=== PATIENT | male | born 1965 | race African-American/Black ===

== ENCOUNTER 2018-06-24 14:24 | Emergency (ER) | payer OTHER ==
--- NOTE | 2018-06-24 14:54 | PDOC ---
History of Present Illness - General Chief Complaint: Alcohol intoxication Stated Complaint: DETOX Time Seen by Provider: 06/24/18 14:52 History Source: Patient Exam Limitations: Intoxication - History of Present Illness Initial Comments: Pt, with PMH of asthma, alcohol and marijuana use, presents with alcohol intoxication while attempting to check into the [facility] rehab center ([facility]). The pt called EMS to bring him to the detox center. The pt states he drinks 1 quart of vodka per day, and 50 oz of malt liquor per day. 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 The pt also has frequent falls with loss of balance, including a fall yesterday in which he fell onto his R forearm, and "maybe hitting his head". The pt uses a cane to ambulate. He also complains of chronic dry cough and took his albuterol MDI 1x today. He denies any recent LOC, tremors or seizures, fevers/chills, nausea/vomiting, chest pain, SOB, abdominal pain, urinary symptoms, diarrhea/constipation, or leg swelling. 06/24/18 19:27 Past History - Travel Traveled outside of the country in the last 30 days: No Close contact w/someone who was outside of country & ill: No - Past Medical History Allergies/Adverse Reactions: Allergies Allergy/AdvReac Type Severity Reaction Status Date / Time Penicillins Allergy Verified 06/24/18 14:41 Home Medications: Ambulatory Orders Albuterol Sulfate Inhaler - [Ventolin Hfa Inhaler -] 1 - 2 inh PO Q4H 06/24/18 traMADol HCL [Ultram -] 25 mg PO HS 06/24/18 Asthma: Yes COPD: No DVT: No Seizures: Yes Other medical history: substance abuse - Surgical History Abdominal Surgery: No Gastric Stapling: No Lung Surgery: No Neurologic Surgery: No - Immunization History Immunization Up to Date: No - Suicide/Smoking/Psychosocial Hx Smoking History: Current every day smoker Have you smoked in the past 12 months: Yes Number of Cigarettes Smoked Daily: 3 Information on smoking cessation initiated: No Hx Alcohol Use: Yes Drug/Substance Use Hx: No Substance Use Type: Alcohol Review of Systems - Review of Systems Able to Perform ROS?: Yes Is the patient limited Maltese proficient: No Constitutional: Yes: Weight Stable. No: Chills, Diaphoresis, Fever, Loss of Appetite, Weakness HEENTM: No: Blurred Vision, Recent change in vision, Hearing Loss, Throat Swelling, Difficulty Swallowing Respiratory: Yes: Cough (dry cough). No: Orthopnea, Shortness of Breath, Productive cough Cardiac (ROS): No: Chest Pain, Edema, Irregular Heart Rate, Lightheadedness, Palpitations, Syncope, Chest Tightness ABD/GI: No: Abdominal Distended, Constipated, Diarrhea, Nausea, Poor Appetite, Poor Fluid Intake, Vomiting : No: Burning, Dysuria, Frequency, Hematuria, Pain, Urgency Musculoskeletal: Yes: Back Pain (chronic low back pain, takes tramadol). No: Joint Pain, Joint Swelling Integumentary: No: Bruising, Erythema, Pruritus, Rash Neurological: Yes: Seizure, Unsteady Gait (frequent falls). No: Headache, Numbness, Paresthesia, Tingling, Tremors, Weakness, Ataxia, Dizziness Psychiatric: No: Sleep Pattern Change, Change in Appetite Endocrine: No: Increased Urine, Change in Weight Hematologic/Lymphatic: No: Anemia, Blood Clots, Easy Bleeding All Other Systems: Reviewed and Negative *Physical Exam - Vital Signs Last Vital Signs Temp Pulse Resp BP Pulse Ox 99.0 F 90 16 126/89 95 06/24/18 14:36 06/24/18 14:36 06/24/18 14:36 06/24/18 14:36 06/24/18 14:36 - Physical Exam General Appearance: Yes: Nourished, Appropriately Dressed, Alcohol on Breath, Intoxicated. No: Apparent Distress HEENT: positive: EOMI, DEVI, Normal Voice, Symmetrical, Hearing Grossly Normal, Thrush (yellow film over tongue, no tonsillar exudate). negative: Normal ENT Inspection, Pharynx Normal, Pale Conjunctivae, Scleral Icterus (R), Scleral Icterus (L), Pharyngeal Erythema, Tonsillar Exudate (yellow film on tongue), Tonsillar Erythema, Nasal Congestion, Rhinorrhea Neck: positive: Trachea midline, Normal Thyroid, Supple. negative: Tender, Rigid, Lymphadenopathy (R), Lymphadenopathy (L) Respiratory/Chest: positive: Lungs Clear. negative: Chest Tender, Normal Breath Sounds (decreased breath sounds, no wheezing.), Respiratory Distress, Accessory Muscle Use, Labored Respiration, Crackles, Wheezing Cardiovascular: positive: Regular Rhythm, Regular Rate, S1, S2. negative: Edema , JVD, Murmur Vascular Pulses: Dorsalis-Pedis (R): 4+, Doralis-Pedis (L): 4+ Gastrointestinal/Abdominal: positive: Normal Bowel Sounds, Flat, Soft. negative : Tender, Organomegaly, Pulsatile Mass, Guarding, Rebound, Tenderness Lymphatic: negative: Adenopathy, Tenderness Musculoskeletal: positive: Normal Inspection. negative: CVA Tenderness Extremity: positive: Normal Capillary Refill, Normal Inspection, Normal Range of Motion, Tender (tender over R forearm, tenderness with elbow flexion and supination), Pelvis Stable. negative: Coldness, Cyanosis, Delayed Capillary Refill, Pedal Edema, Erythema, Inflammation Integumentary: positive: Normal Color, Dry, Warm. negative: Jaundice, Clammy, Diaphoresis, Ecchymosis, Bruising Neurologic: positive: camera control operator II-XII NML intact, Fully Oriented, Alert (A/O x4. Intoxicated but can be awoken.), Normal Mood/Affect, Normal Response, Motor Strength 5/5, Responsive. negative: EOM Palsy, Facial Droop, Sensory Deficit, Confused, Disoriented ED Treatment Course - LABORATORY CBC & Chemistry Diagram: 06/24/18 16:30 06/24/18 16:30 - RADIOLOGY Radiology Studies Ordered: head CT non-contrast: no acute pathology. Acute/chronic sinusitis. R elbow x-ray: no acute fracture or dislocation. likely chronic humeral exosytosis. 06/24/18 17:46 Medical Decision Making - Medical Decision Making Pt seen at bedside. Smells heavily of alcohol, A/O x4, sleeping deeply but able to awake. Pt states he drank 1 quart vodka this morning and is presenting for detox at [facility]. He had a fall yesterday, falling onto his R forearm and "maybe hit his head". Ordered x-ray of R elbow and non-contrast head CT. Pt has b/l hand tremor, but is not tachycardic, is normotensive, and has no nausea, vomiting, or diarrhea. Ordered basic labs (CBC, CMP, UA, urine drug screen, alcohol level) and provided duoneb for decreased air movement. Will follow-labs and provide alcohol withdrawal medication if necessary. 06/24/18 16:16 CBC showed WBC 1.6, possible hemodilution(?). Will wait for other labs and will re-order if necessary. Pt taken for head CT and x-ray of R elbow. 06/24/18 17:24 Alcohol level 359. 06/24/18 17:40 CT: no acute pathology. Acute/chronic sinusitis. Pt is not presenting with any sinus congestion, fevers/chills, or rhinorrhea. 06/24/18 17:45 Platelets 96. X-ray of R arm showed no acute fractures or dislocations. 06/24/18 19:[address] Pt signed out with [address] Cheema. Will admit for observation for work-up of pancytopenia. Pt agreeable to plan. Microblog sent to admission team per optical laboratory technician. 06/24/18 19:37 *DC/Admit/Observation/Transfer Diagnosis at time of Disposition: Pancytopenia - Referrals - Patient Instructions - Post Discharge Activity
[2018-06-24 15:06] VITALS: BMI 23.1
--- NOTE | 2018-06-24 15:44 | PDOC ---
Attending Attestation - Resident Resident Name: Lucretia Dejesus - ED Attending Attestation I have performed the following: I have examined & evaluated the patient, The case was reviewed & discussed with the resident, I agree w/resident's findings & plan, Exceptions are as noted - HPI HPI: 06/24/18 15:42 53y M hx of etoh abuse (hx of withdrawal seizures) presents for complaint of wanting etoh detox had a quart of vodka this monring has no complaints currently denies any cp, sob, f/c, cough, n/v/d, back pain, abd pain, diarrhea, headache, neck pain pt denies any fall, but had mentioned to resident that he might have fallen eysterday - Physicial Exam PE: 06/24/18 16:58 GENERAL: The patient is somnolent, but arousable, atremulous HEAD: Normocephalic, atraumatic. EYES: extraocular movements intact, sclera anicteric, conjunctiva clear. ENT: Normal voice, Moist mucous membranes. NECK: Normal range of motion, supple LUNGS: Breath sounds equal, clear to auscultation bilaterally. No wheezes, no rhonchi, no rales. HEART: Regular rate and rhythm, ABDOMEN: Soft, nontender, No guarding, no rebound. No CVA tenderness EXTREMITIES: Normal range of motion, no edema. NEUROLOGICAL: No facial assymetry, Normal speech, moving all 4 extrmities spontneously and symmetrically PSYCH: Normal mood, normal affect. SKIN: Warm, Dry, normal turgor, - Medical Decision Making 06/24/18 16:59 ct head labs reassess for sobriety Heart Score/ECG Review - ECG Impressions Comment:: 06/24/18 17:00 Twelve-lead EKG was performed and reviewed by me. There is normal sinus rhythm with a normal rate. Rate of [address] changes suggestive of acute infeciton
[2018-06-24] MEDS ORDERED: ALBUTEROL SO4 2.5/IPRATROPIUM 0.5 INH SOL 3 ML VIAL.NEB. NEB ONE (16:19)
[2018-06-24 16:48] LABS: HEMATOCRIT 34.6 % (35.4-49); HEMOGLOBIN 11.7 GM/dL (11.7-16.9); MCH 34.7 pg (25.7-33.7); MCHC 33.8 g/dl (32.0-35.9); MEAN CELL VOLUME 102.8 fl (80-96); RBC 3.37 M/mm3 (4.00-5.60); RDW 14.9 % (11.9-15.9)
[2018-06-24 17:04] LABS: WHITE BLOOD COUNT 1.6 K/mm3 (4.0-10.0)
[2018-06-24] MEDS ORDERED: ACETAMINOPHEN 325 MG TABLET (FP) PO ONE (17:14)
[2018-06-24 17:19] LABS: ALBUMIN 3.7 g/dl (3.4-5.0); ANION GAP 11 (8-16); BILIRUBIN,TOTAL 0.6 mg/dL (0.2-1.0); BLOOD UREA NITROGEN 6 mg/dL (7-18); CALCIUM 8.5 mg/dL (8.5-10.1); CHLORIDE 108 mmol/L (98-107); CO2 28 mmol/L (21-32); CREATININE 0.7 mg/dL (0.7-1.3); GLUCOSE,RANDOM 76 mg/dL (74-106); POTASSIUM 3.8 mmol/L (3.5-5.1); SGOT/AST 139 U/L (15-37); SGPT/ALT 86 U/L (12-78); SODIUM 147 mmol/L (136-145)
[2018-06-24 17:20] LABS: ALK PHOS 41 U/L (45-117); TOT PROT 6.8 g/dl (6.4-8.2)
[2018-06-24] MEDS ORDERED: ACETAMINOPHEN 325 MG TABLET (FP) ONE (17:37)
[2018-06-24 18:27] VITALS: BP 103/64; PULSE 74; TEMP 98
[2018-06-24 19:09] LABS: MEAN PLT VOLUME 9.8 fl (7.5-11.1); PLATELET COUNT 96 K/MM3 (134-434)
[2018-06-24 19:11] LABS: MACROCYTOSIS 1+; PLATELET ESTIMATE SLT DECREASE
--- NOTE | 2018-06-24 20:24 | PDOC ---
*Physical Exam - Vital Signs Last Vital Signs Temp Pulse Resp BP Pulse Ox 98.0 F 74 16 103/64 98 06/24/18 18:26 06/24/18 18:26 06/24/18 18:26 06/24/18 18:26 06/24/18 18:26 ED Treatment Course - LABORATORY CBC & Chemistry Diagram: 06/24/18 16:30 06/24/18 16:30 - ADDITIONAL ORDERS Additional order review: Laboratory Results 06/24/18 06/24/18 06/24/18 16:30 16:30 15:24 Sodium 147 H Potassium 3.8 Chloride 108 H Carbon Dioxide 28 Anion Gap 11 BUN 6 L Creatinine 0.7 Creat Clearance w eGFR > 60 POC Glucometer 84.47697 Random Glucose 76 Calcium 8.5 Total Bilirubin 0.6 AST 139 H ALT 86 H Alkaline Phosphatase 41 L Total Protein 6.8 Albumin 3.7 Alcohol, Quantitative 359.20 H* 06/24/18 06/24/18 16:30 15:24 RBC 3.37 L MCV 102.8 H MCHC 33.8 RDW 14.9 MPV 9.8 Neutrophils % No Result Required. Lymphocytes % No Result Required. POC Glucometer 84.66649 - Medications Given in the ED: ED Medications Discontinued Medications Generic Name Dose Route Start Last Admin Trade Name Freq PRN Reason Stop Dose Admin Acetaminophen 650 mg 06/24/18 17:14 06/24/18 17:54 Tylenol - PO 06/24/18 17:15 650 mg ONCE ONE Administration Albuterol/Ipratropium 1 amp 06/24/18 16:19 06/24/18 16:23 Duoneb - NEB 06/24/18 16:20 1 amp ONCE ONE Administration Medical Decision Making - Medical Decision Making 06/24/18 20:21 53 M presenting to ED for ETOH intoxication from [facility], incidentally found to be pancytopenic. ANC 500, moderate/severe neutropenia. Platelets 90s. Suspect nutritional deficiency as etiology given h/o heavy ETOH use and mild macrocytic anemia. Also consider occult malignancy. - Will defer abx as pt without fevers or infectious symptoms - Banana bag ordered - Will admit obs *DC/Admit/Observation/Transfer Diagnosis at time of Disposition: Pancytopenia - Discharge Dispostion Decision to Admit order: Yes - Referrals - Patient Instructions - Post Discharge Activity - Attestations Physician Attestion: 06/24/18 20:28 I, Dr. Harshil Cheema MD, attest that this document has been prepared under my direction and personally reviewed by me in its entirety. I further attest, that it accurately reflects all work, treatment, procedures and medical decision -making performed by me.
--- NOTE | 2018-06-24 21:29 | PN ---
Teaching Attending Note Name of Resident: Josh Schneider ATTENDING PHYSICIAN STATEMENT I saw and evaluated the patient. I reviewed the resident's note and discussed the case with the resident. I agree with the resident's findings and plan as documented. SUBJECTIVE: Patient is a 53 year old man with PMH of asthma, alcohol and marijuana use, who presents with alcohol intoxication while attempting to check into the [facility] rehab center ([facility]). He called EMS to bring him to the detox center. He drinks 1 quart of vodka per day, and 50 oz of malt liquor per day. 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 He has frequent falls with loss of balance, including a fall yesterday in which he fell onto his R forearm, and "maybe hit his head". Uses a cane to ambulate. He also complains of chronic dry cough and took his albuterol MDI 1x today. He denies any recent LOC, tremors or seizures, fevers/chills, nausea/vomiting, chest pain, SOB, abdominal pain, urinary symptoms, diarrhea/constipation, or leg swelling. OBJECTIVE: Vital Signs Period Temp Pulse Resp BP Sys/Madden Pulse Ox Last 24 Hr 98.0 F-99.0 F 74-90 16-16 103-126/64-89 95-98 HEENT: No Jaundice, eye redness or discharge, PERRLA, EOMI. Normocephalic, atraumatic. External ears are normal and hearing is grossly intact. No nasal discharge. Neck: Supple, nontender. No palpable adenopathy or thyromegaly. No JVD Chest: Good effort. Clear to auscultation and percussion. Heart: Regular. No S3, rub or murmur Abdomen: Not distended, soft, nontender and no HSM. No rebound or guarding. Normoactive bowel sounds. Ext: Peripheral pulses intact. No leg edema. Skin: Warm and dry. No petechiae, rash or ecchymosis. Neuro: Alert. Oriented x3. CN 2-12 grossly intact. Sensation grossly intact in all four extremities and DTR are symmetric. Home Medications Medication Instructions Recorded Albuterol Sulfate Inhaler - 1 - 2 inh PO Q4H 06/24/18 [Ventolin Hfa Inhaler -] traMADol HCL [Ultram -] 25 mg PO HS 06/24/18 Abnormal Lab Results 06/24/18 06/24/18 06/24/18 16:30 16:30 16:30 WBC 1.6 L* RBC 3.37 L Hct 34.6 L MCV 102.8 H MCH 34.7 H Plt Count 96 L Neutrophils % (Manual) 36.0 L Lymphocytes % (Manual) 52.0 H Monocytes % (Manual) 12 H Eosinophils % (Manual) 8.0 H Sodium 147 H Chloride 108 H BUN 6 L AST 139 H ALT 86 H Alkaline Phosphatase 41 L Alcohol, Quantitative 359.20 H* ASSESSMENT AND PLAN: Hypoalbuminemia - Possibly due to combined effects of malnutrition and inflammation associated with comorbid chronic conditions. Will ensure adequate dietary protein intake and also consult contact printer dry film. DM - For now, we will hold the home diabetes drugs and implement sliding scale insulin regimen. Provide comprehensive diabetes care with patient teaching and counseling about the importance of euglycemia, eye care and foot care. Tobacco Use We will provide patient all the necessary assistance to facilitate smoking cessation and prescribe Nicotine patch. Will consult nephrology and avoid nephrotoxic agents such as NSAIDS, aminoglycosides, contrast dyes and certain Alternative medicine products. Anemia - Do basic anemia work up including serial stool guaiacs, reticulocyte count and iron studies. Would benefit from Procrit therapy once iron replete. Obesity - Will provide patient all the necessary assistance , counseling and positive reinforcement to facilitate weight loss. Consult contact printer dry film. Alcohol abuse - Implement [facility] alcohol withdrawal protocol and fall precautions. Treat with thiamine and folic acid and monitor electrolytes (Ca,Mg, K,P). Last Putter Away patient about abstaining from alcohol and refer to alcohol detox upon discharge. DVT prophylaxis - Heparin 5000u sq tid. Lovenox 40 mg SQ q 24 hours. Advance directives - Full code
--- NOTE | 2018-06-25 09:03 | EKG ---
Test Reason : Blood Pressure : / mmHG Vent. Rate : 085 BPM Atrial Rate : 085 BPM P-R Int : 158 ms QRS Dur : 092 ms QT Int : 396 ms P-R-T Axes : 033 072 070 degrees QTc Int : 471 ms NORMAL SINUS RHYTHM POSSIBLE ANTERIOR INFARCT , AGE UNDETERMINED ABNORMAL ECG NO PREVIOUS ECGS AVAILABLE Confirmed by NAKUL PATRICIA MD ([id number]) on 06/25/2018 9:03:46 AM Referred By: Confirmed By:NAKUL PATRICIA MD
== END 2018-06-24 21:28 | disposition left against medical advice (07) ==
LOC: JER 14:24
PROC: 3E0F7GC Introduction of Other Therapeutic Substance into Respiratory Tract, Via Natural or Artificial Opening (ICD-10-PCS; principal; 2018-06-24)
DX: D61.818 Other pancytopenia (principal); F17.210 Nicotine dependence, cigarettes, uncomplicated; J45.909 Unspecified asthma, uncomplicated
CPT/HCPCS: 36415; 70450-TC; 73070-TC-RT-FY; 80053; 80307; 82962; 85025; 93005; 93010; 99284-25; J7620

== ENCOUNTER 2021-02-18 10:18 | Inpatient (IN) | payer OTHER ==
[2021-02-18 10:55] VITALS: BMI 23.1
[2021-02-18] MEDS ORDERED: ALBUTEROL SO4 HFA INHALER IH PRN (11:25)
[2021-02-18] MEDS ORDERED: MENTHOL/PHENOL 1 EACH UD MM PRN (11:26)
[2021-02-18] MEDS ORDERED: NICOTINE POLACRILEX 2 MG GUM BUC PRN (11:26)
[2021-02-18] MEDS ORDERED: BISMUTH SUBSALICYLATE 524 MG/30 ML UD PO PRN (11:26)
[2021-02-18] MEDS ORDERED: ONDANSETRON *ODT* 4 MG TABLET SL PRN (11:26)
[2021-02-18] MEDS ORDERED: MAG HYDROX/AL HYDROX/SIMETH 30 ML UNIT-DOSE CUP PO PRN (11:26)
[2021-02-18] MEDS ORDERED: IBUPROFEN 400 MG TABLET (FP) PO PRN (11:26)
[2021-02-18] MEDS ORDERED: ACETAMINOPHEN 325 MG TABLET (FP) PO PRN ×2 (11:26)
[2021-02-18] MEDS ORDERED: MAGNESIUM CITRATE 300 ML BOTTLE PO PRN (11:26)
[2021-02-18] MEDS ORDERED: MAGNESIUM HYDROX 2400MG/30ML ORAL SUSPENSION 30 ML CUP PO PRN (11:26)
[2021-02-18] MEDS ORDERED: chlordiazePOXIDE HCL 25 MG CAPSULE PO PRN (11:26)
[2021-02-18] MEDS ORDERED: NICOTINE 14 MG/24 HOURS TOPICAL PATCH TD ONE (11:42)
[2021-02-18] MEDS ORDERED: ACETAMINOPHEN 325 MG TABLET (FP) ONE (11:42)
[2021-02-18] MEDS ORDERED: chlordiazePOXIDE HCL 25 MG CAPSULE ONE (11:42)
[2021-02-18] MEDS: PRENATAL VITAMINS W/ FOLIC ACID TABLET (FP) PO SCH (11:50)
[2021-02-18] MEDS: NICOTINE 14 MG/24 HOURS TOPICAL PATCH TD SCH (11:50)
[2021-02-18] MEDS: hydrOXYzine PAMOATE 25 MG CAPSULE (FP) PO SCH ×3 (14:25→22:08)
[2021-02-18 14:42] LABS: CALCIUM 8.8 mg/dL (8.5-10.1)
[2021-02-18 14:45] LABS: ALBUMIN 3.6 g/dl (3.4-5.0)
[2021-02-18 14:46] LABS: HEMATOCRIT 35.6 % (35.4-49); MCH 34.6 pg (25.7-33.7); MCHC 33.6 g/dl (32.0-35.9); MEAN CELL VOLUME 102.9 fl (80-96); MEAN PLT VOLUME 10.5 fl (7.5-11.1); PLATELET COUNT 118 K/MM3 (134-434); RBC 3.46 M/mm3 (4.00-5.60); RDW 14.2 % (11.9-15.9); WHITE BLOOD COUNT 2.8 K/mm3 (4.0-10.0)
[2021-02-18 14:48] LABS: CREATININE 0.9 mg/dL (0.55-1.3)
[2021-02-18 14:49] LABS: BILIRUBIN,TOTAL 0.8 mg/dL (0.2-1)
[2021-02-18 14:52] LABS: TOT PROT 7.1 g/dl (6.4-8.2)
[2021-02-18] MEDS: chlordiazePOXIDE HCL 25 MG CAPSULE PO SCH ×2 (17:13→22:08)
[2021-02-18] MEDS: THIAMINE HCL 100 MG TABLET (FP) PO SCH (22:08)
[2021-02-18] MEDS: MELATONIN 5 MG TABLETS PO SCH (22:08)
[2021-02-19] MEDS: hydrOXYzine PAMOATE 25 MG CAPSULE (FP) PO SCH ×5 (05:15→22:05)
[2021-02-19] MEDS: chlordiazePOXIDE HCL 25 MG CAPSULE PO SCH ×4 (05:15→22:06)
[2021-02-19] MEDS: PRENATAL VITAMINS W/ FOLIC ACID TABLET (FP) PO SCH (10:11)
[2021-02-19] MEDS: NICOTINE 14 MG/24 HOURS TOPICAL PATCH TD SCH (10:12)
[2021-02-19] MEDS: THIAMINE HCL 100 MG TABLET (FP) PO SCH (22:05)
[2021-02-19] MEDS: MELATONIN 5 MG TABLETS PO SCH (22:06)
[2021-02-20] MEDS: hydrOXYzine PAMOATE 25 MG CAPSULE (FP) PO SCH ×5 (05:38→22:20)
[2021-02-20] MEDS: chlordiazePOXIDE HCL 25 MG CAPSULE PO SCH ×4 (05:38→22:19)
[2021-02-20 10:27] LABS: POTASSIUM 3.5 mmol/L (3.5-5.1)
[2021-02-20 10:31] LABS: ALBUMIN 3.2 g/dl (3.4-5.0); BLOOD UREA NITROGEN 8.2 mg/dL (7-18)
[2021-02-20 10:34] LABS: CREATININE 0.7 mg/dL (0.55-1.3)
[2021-02-20 10:35] LABS: BILIRUBIN,TOTAL 1.2 mg/dL (0.2-1); TOT PROT 6.4 g/dl (6.4-8.2)
[2021-02-20 10:42] LABS: HEMATOCRIT 31.7 % (35.4-49); HEMOGLOBIN 10.8 GM/dL (11.7-16.9); MCHC 34.1 g/dl (32.0-35.9); MEAN CELL VOLUME 102.7 fl (80-96); MEAN PLT VOLUME 10.2 fl (7.5-11.1); PLATELET COUNT 110 K/MM3 (134-434); RBC 3.09 M/mm3 (4.00-5.60); RDW 14.1 % (11.9-15.9)
[2021-02-20] MEDS: PRENATAL VITAMINS W/ FOLIC ACID TABLET (FP) PO SCH (10:46)
[2021-02-20] MEDS: NICOTINE 14 MG/24 HOURS TOPICAL PATCH TD SCH (10:50)
[2021-02-20] MEDS ORDERED: FERROUS SO4 325 MG TABLET (FP) PO ONE (11:24)
[2021-02-20] MEDS: DOXYCYCLINE HYCLATE 100 MG TABLET PO SCH (18:21)
[2021-02-20] MEDS: MELATONIN 5 MG TABLETS PO SCH (22:20)
[2021-02-20] MEDS: THIAMINE HCL 100 MG TABLET (FP) PO SCH (22:20)
[2021-02-21] MEDS ORDERED: chlordiazePOXIDE HCL 10 MG CAPSULE PO PRN
[2021-02-21 05:11] LABS: SARS-CoV-2 NAA Not Detected (Not Detected)
[2021-02-21] MEDS: hydrOXYzine PAMOATE 25 MG CAPSULE (FP) PO SCH ×5 (05:18→22:01)
[2021-02-21] MEDS: chlordiazePOXIDE HCL 10 MG CAPSULE PO SCH ×4 (05:18→22:01)
[2021-02-21] MEDS: NICOTINE 14 MG/24 HOURS TOPICAL PATCH TD SCH (09:54)
[2021-02-21] MEDS: PRENATAL VITAMINS W/ FOLIC ACID TABLET (FP) PO SCH (09:55)
[2021-02-21] MEDS: DOXYCYCLINE HYCLATE 100 MG TABLET PO SCH ×2 (09:55→17:27)
[2021-02-21] MEDS: METHOCARBAMOL 500 MG TABLET PO PRN ×2 (15:27→22:01)
[2021-02-21] MEDS: THIAMINE HCL 100 MG TABLET (FP) PO SCH (22:01)
[2021-02-21] MEDS: MELATONIN 5 MG TABLETS PO SCH (22:01)
[2021-02-22] MEDS ORDERED: chlordiazePOXIDE HCL 10 MG CAPSULE PO SCH (05:00)
[2021-02-22] MEDS: hydrOXYzine PAMOATE 25 MG CAPSULE (FP) PO SCH ×2 (05:34→10:02)
[2021-02-22 09:01] VITALS: BP 132/87; PULSE 108; TEMP 97.1
[2021-02-22] MEDS: DOXYCYCLINE HYCLATE 100 MG TABLET PO SCH (10:02)
[2021-02-22] MEDS: PRENATAL VITAMINS W/ FOLIC ACID TABLET (FP) PO SCH (10:02)
[2021-02-22] MEDS: NICOTINE 14 MG/24 HOURS TOPICAL PATCH TD SCH (10:02)
[2021-02-23] MEDS ORDERED: chlordiazePOXIDE HCL 10 MG CAPSULE PO ONE (05:00)
== END 2021-02-22 09:40 | disposition home or self-care (01) | DRG 775 ==
LOC: YASAS 10:18 → Y3N 11:00 → UNDOADMIN 11:00 → Y3N 18:19 → UNDOADMIN 19:19 → Y3N 19:19
PROVIDERS: ADMIT Allergy & Immunology; ATTEND Allergy & Immunology
PROC: HZ2ZZZZ Detoxification Services for Substance Abuse Treatment (ICD-10-PCS; principal; 2021-02-18)
DX: F10.230 Alcohol dependence with withdrawal, uncomplicated (principal); F12.20 Cannabis dependence, uncomplicated; F17.210 Nicotine dependence, cigarettes, uncomplicated; J45.909 Unspecified asthma, uncomplicated; M54.5 Low back pain; R29.6 Repeated falls; Z98.890 Other specified postprocedural states; Z88.0 Allergy status to penicillin
CPT/HCPCS: 36415; 71046-TC-FY; 80053; 82947; 85027; 86593; 86780; C9803; U0003; U0005

== ENCOUNTER 2021-04-21 11:55 | Inpatient (IN) | payer OTHER ==
[2021-04-21 12:18] VITALS: BMI 24.1
[2021-04-21] MEDS ORDERED: MAG HYDROX/AL HYDROX/SIMETH 30 ML UNIT-DOSE CUP PO PRN (13:26)
[2021-04-21] MEDS ORDERED: MAGNESIUM HYDROX 2400MG/30ML ORAL SUSPENSION 30 ML CUP PO PRN (13:26)
[2021-04-21] MEDS ORDERED: BISMUTH SUBSALICYLATE 524 MG/30 ML PO PRN (13:26)
[2021-04-21] MEDS ORDERED: IBUPROFEN 400 MG TABLET (FP) PO PRN (13:26)
[2021-04-21] MEDS ORDERED: METHOCARBAMOL 500 MG TABLET PO PRN (13:26)
[2021-04-21] MEDS ORDERED: MAGNESIUM CITRATE 300 ML BOTTLE PO PRN (13:26)
[2021-04-21] MEDS ORDERED: ACETAMINOPHEN 325 MG TABLET (FP) PO PRN ×2 (13:26)
[2021-04-21] MEDS ORDERED: MENTHOL/PHENOL 1 EACH UD MM PRN (13:26)
[2021-04-21] MEDS ORDERED: LORazepam 1 MG TABLET PO PRN (13:26)
[2021-04-21] MEDS ORDERED: ONDANSETRON *ODT* 4 MG TABLET SL PRN (13:26)
[2021-04-21] MEDS ORDERED: NICOTINE POLACRILEX 2 MG GUM BUC PRN (13:26)
[2021-04-21] MEDS ORDERED: ALBUTEROL SO4 HFA INHALER IH PRN (13:43)
[2021-04-21] MEDS: PRENATAL VITAMINS W/ FOLIC ACID TABLET (FP) PO SCH (14:24)
[2021-04-21] MEDS: NICOTINE 14 MG/24 HOURS TOPICAL PATCH TD SCH (14:26)
[2021-04-21] MEDS: LIDOCAINE 5% TOPICAL PATCH TP SCH (14:27)
[2021-04-21] MEDS: hydrOXYzine PAMOATE 25 MG CAPSULE (FP) PO SCH ×3 (14:45→22:33)
[2021-04-21] MEDS: LORazepam 2 MG TABLET PO SCH ×2 (18:05→22:33)
[2021-04-21] MEDS: THIAMINE HCL 100 MG TABLET (FP) PO SCH (22:33)
[2021-04-21] MEDS: MELATONIN 5 MG TABLETS PO SCH (22:34)
[2021-04-22] MEDS: LORazepam 2 MG TABLET PO SCH ×4 (05:22→22:26)
[2021-04-22] MEDS: hydrOXYzine PAMOATE 25 MG CAPSULE (FP) PO SCH ×5 (05:22→22:26)
[2021-04-22] MEDS: NICOTINE 14 MG/24 HOURS TOPICAL PATCH TD SCH (10:31)
[2021-04-22] MEDS: PRENATAL VITAMINS W/ FOLIC ACID TABLET (FP) PO SCH (10:32)
[2021-04-22] MEDS: LIDOCAINE 5% TOPICAL PATCH TP SCH (10:32)
[2021-04-22 11:34] LABS: HEMATOCRIT 37.6 % (35.4-49); HEMOGLOBIN 12.6 GM/dL (11.7-16.9); MCH 32.3 pg (25.7-33.7); MCHC 33.5 g/dl (32.0-35.9); MEAN CELL VOLUME 96.5 fl (80-96); MEAN PLT VOLUME 10.3 fl (7.5-11.1); PLATELET COUNT 148 K/MM3 (134-434); RDW 13.4 % (11.9-15.9)
[2021-04-22 11:47] LABS: ALBUMIN 3.1 g/dl (3.4-5.0); BLOOD UREA NITROGEN 8.9 mg/dL (7-18)
[2021-04-22 11:50] LABS: CREATININE 0.7 mg/dL (0.55-1.3)
[2021-04-22 11:51] LABS: BILIRUBIN,TOTAL 1.4 mg/dL (0.2-1); TOT PROT 6.3 g/dl (6.4-8.2)
[2021-04-22] MEDS: MELATONIN 5 MG TABLETS PO SCH (22:26)
[2021-04-22] MEDS: THIAMINE HCL 100 MG TABLET (FP) PO SCH (22:26)
[2021-04-23] MEDS: hydrOXYzine PAMOATE 25 MG CAPSULE (FP) PO SCH ×2 (05:18→10:18)
[2021-04-23] MEDS: LORazepam 1 MG TABLET PO SCH ×2 (05:18→10:16)
[2021-04-23] MEDS: LIDOCAINE 5% TOPICAL PATCH TP SCH (10:16)
[2021-04-23] MEDS: PRENATAL VITAMINS W/ FOLIC ACID TABLET (FP) PO SCH (10:18)
[2021-04-23] MEDS: NICOTINE 14 MG/24 HOURS TOPICAL PATCH TD SCH (10:18)
[2021-04-23 13:16] VITALS: BP 121/77; PULSE 119; TEMP 97.3
[2021-04-24] MEDS ORDERED: LORazepam 0.5 MG TABLET PO PRN
[2021-04-24] MEDS ORDERED: LORazepam 0.5 MG TABLET PO SCH (05:00)
[2021-04-25] MEDS ORDERED: LORazepam 0.5 MG TABLET PO ONE (05:00)
== END 2021-04-23 12:56 | disposition left against medical advice (07) | DRG 770 ==
LOC: YASAS 11:55 → Y6N 13:49
PROVIDERS: ADMIT Allergy & Immunology; ATTEND Allergy & Immunology
PROC: HZ2ZZZZ Detoxification Services for Substance Abuse Treatment (ICD-10-PCS; principal; 2021-04-21)
DX: F10.230 Alcohol dependence with withdrawal, uncomplicated (principal); F12.20 Cannabis dependence, uncomplicated; F17.210 Nicotine dependence, cigarettes, uncomplicated; J45.909 Unspecified asthma, uncomplicated; M54.5 Low back pain; G89.29 Other chronic pain; Z91.81 History of falling; Z99.89 Dependence on other enabling machines and devices; Z88.0 Allergy status to penicillin
CPT/HCPCS: 36415; 80053; 85027; 86593; 86780; C9803; U0003; U0005

== ENCOUNTER 2021-12-12 13:40 | Inpatient (IN) | payer OTHER ==
[2021-12-12] MEDS ORDERED: MAGNESIUM HYDROX 2400MG/30ML ORAL SUSPENSION 30 ML CUP PO PRN (16:04)
[2021-12-12] MEDS ORDERED: MENTHOL/PHENOL 1 EACH UD MM PRN (16:04)
[2021-12-12] MEDS ORDERED: MAGNESIUM CITRATE 300 ML BOTTLE PO PRN (16:04)
[2021-12-12] MEDS ORDERED: ACETAMINOPHEN 325 MG TABLET (FP) PO PRN ×2 (16:04)
[2021-12-12] MEDS ORDERED: NICOTINE 10 MG CARTRIDGE (INHALER) IH PRN (16:04)
[2021-12-12] MEDS ORDERED: IBUPROFEN 400 MG TABLET (FP) PO PRN (16:04)
[2021-12-12] MEDS ORDERED: BISMUTH SUBSALICYLATE 524 MG/30 ML PO PRN (16:04)
[2021-12-12] MEDS ORDERED: MAG HYDROX/AL HYDROX/SIMETH 30 ML UNIT-DOSE CUP PO PRN (16:04)
[2021-12-12] MEDS ORDERED: ONDANSETRON *ODT* 4 MG TABLET SL PRN (16:04)
[2021-12-12] MEDS ORDERED: ALBUTEROL SO4 HFA INHALER IH PRN (16:07)
[2021-12-12 16:18] VITALS: BMI 21.4
[2021-12-12] MEDS: hydrOXYzine PAMOATE 25 MG CAPSULE (FP) PO SCH ×2 (18:42→22:04)
[2021-12-12] MEDS ORDERED: MELATONIN 5 MG TABLETS PO SCH (22:00)
[2021-12-12] MEDS: THIAMINE HCL 100 MG TABLET (FP) PO SCH (22:04)
[2021-12-13] MEDS: hydrOXYzine PAMOATE 25 MG CAPSULE (FP) PO SCH ×5 (05:34→22:16)
[2021-12-13] MEDS: PRENATAL VITAMINS W/ FOLIC ACID TABLET (FP) PO SCH (10:39)
[2021-12-13] MEDS: METHOCARBAMOL 500 MG TABLET PO PRN (22:16)
[2021-12-13] MEDS: THIAMINE HCL 100 MG TABLET (FP) PO SCH (22:16)
[2021-12-13] MEDS: QUEtiapine FUMARATE 50 MG TABLET PO SCH (23:39)
[2021-12-14] MEDS: hydrOXYzine PAMOATE 25 MG CAPSULE (FP) PO SCH ×5 (07:19→22:05)
[2021-12-14] MEDS: PRENATAL VITAMINS W/ FOLIC ACID TABLET (FP) PO SCH (10:20)
[2021-12-14] MEDS: SERTRALINE HCL 50 MG TABLET (FP) PO SCH (10:21)
[2021-12-14 12:05] LABS: HEMATOCRIT 41.8 % (35.4-49); HEMOGLOBIN 13.6 GM/dL (11.7-16.9); MCH 33.5 pg (25.7-33.7); MCHC 32.5 g/dl (32.0-35.9); MEAN CELL VOLUME 102.9 fl (80-96); MEAN PLT VOLUME 10.7 fl (7.5-11.1); PLATELET COUNT 107 10^3/uL (134-434); RBC 4.06 M/mm3 (4.00-5.60); RDW 14.1 % (11.9-15.9); WHITE BLOOD COUNT 2.1 K/mm3 (4.0-10.0)
[2021-12-14 12:07] LABS: CALCIUM 8.7 mg/dL (8.5-10.1)
[2021-12-14 12:08] LABS: ALBUMIN 3.4 g/dl (3.4-5.0); BLOOD UREA NITROGEN 5.6 mg/dL (7-18)
[2021-12-14] MEDS ORDERED: cloNIDine HCL 0.1 MG TABLET PO PRN (12:10)
[2021-12-14 12:11] LABS: CREATININE 0.7 mg/dL (0.55-1.3)
[2021-12-14 12:12] LABS: BILIRUBIN,TOTAL 2.1 mg/dL (0.2-1); TOT PROT 6.7 g/dl (6.4-8.2)
[2021-12-14] MEDS: GABAPENTIN 100 MG CAPSULE PO SCH ×2 (13:32→22:05)
[2021-12-14] MEDS ORDERED: QUEtiapine FUMARATE 25 MG TABLET ONE (20:41)
[2021-12-14] MEDS: THIAMINE HCL 100 MG TABLET (FP) PO SCH (22:06)
[2021-12-14] MEDS: QUEtiapine FUMARATE 50 MG TABLET PO SCH (22:06)
[2021-12-15] MEDS: GABAPENTIN 100 MG CAPSULE PO SCH (05:19)
[2021-12-15] MEDS: hydrOXYzine PAMOATE 25 MG CAPSULE (FP) PO SCH ×2 (07:13→10:11)
[2021-12-15 09:09] VITALS: BP 93/58; PULSE 73; TEMP 96.8
[2021-12-15] MEDS: PRENATAL VITAMINS W/ FOLIC ACID TABLET (FP) PO SCH (10:11)
[2021-12-15] MEDS: SERTRALINE HCL 50 MG TABLET (FP) PO SCH (10:11)
[2021-12-15] MEDS: METHOCARBAMOL 500 MG TABLET PO PRN (10:12)
[2021-12-15 12:50] LABS: BILIRUBIN,TOTAL 0.9 mg/dL (0.2-1)
== END 2021-12-15 11:05 | disposition home or self-care (01) | DRG 775 ==
LOC: YASAS 13:40 → Y3N 17:56 → UNDOADMIN 17:56
PROVIDERS: ADMIT Allergy & Immunology; ATTEND Allergy & Immunology
PROC: HZ2ZZZZ Detoxification Services for Substance Abuse Treatment (ICD-10-PCS; principal; 2021-12-12)
DX: F10.230 Alcohol dependence with withdrawal, uncomplicated (principal); F12.20 Cannabis dependence, uncomplicated; F17.210 Nicotine dependence, cigarettes, uncomplicated; F32.A Depression, unspecified; J45.909 Unspecified asthma, uncomplicated; M54.50 Low back pain, unspecified; G89.29 Other chronic pain; R73.9 Hyperglycemia, unspecified; R74.01 Elevation of levels of liver transaminase levels; Z86.19 Personal history of other infectious and parasitic diseases; Z86.69 Personal history of other diseases of the nervous system and sense organs; Z88.0 Allergy status to penicillin; Z59.01 Sheltered homelessness
CPT/HCPCS: 36415; 80053; 82247; 82947; 83036; 84450; 85027; 86593; 86780; C9803; U0003; U0005

== ENCOUNTER 2023-02-18 12:22 | Inpatient (IN) | payer OTHER ==
[2023-02-18 13:21] VITALS: BMI 19.9
[2023-02-18] MEDS ORDERED: ONDANSETRON *ODT* 4 MG TABLET SL PRN (14:22)
[2023-02-18] MEDS ORDERED: POLYETHYLENE GLYCOL (HEALTHYLAX) 3350 17 GM PACKET PO PRN (14:22)
[2023-02-18] MEDS ORDERED: hydrOXYzine PAMOATE 25 MG CAPSULE (FP) PO PRN (14:22)
[2023-02-18] MEDS ORDERED: BISMUTH SUBSALICYLATE 524 MG/30 ML PO PRN (14:22)
[2023-02-18] MEDS ORDERED: LOPERAMIDE HCL 2 MG CAPSULE PO PRN (14:22)
[2023-02-18] MEDS ORDERED: ACETAMINOPHEN 325 MG TABLET (FP) PO PRN (14:22)
[2023-02-18] MEDS ORDERED: MAGNESIUM HYDROX 2400MG/30ML ORAL SUSPENSION 30 ML CUP PO PRN (14:22)
[2023-02-18] MEDS ORDERED: NICOTINE 7 MG/24 HOURS TOPICAL PATCH TD PRN (14:22)
[2023-02-18] MEDS ORDERED: chlordiazePOXIDE HCL 25 MG CAPSULE PO PRN (14:22)
[2023-02-18] MEDS ORDERED: BENZOCAINE/MENTHOL (CHLORASEPTIC ) LOZENGE MM PRN (14:22)
[2023-02-18] MEDS ORDERED: NICOTINE 10 MG CARTRIDGE (INHALER) IH PRN (14:22)
[2023-02-18] MEDS ORDERED: NICOTINE POLACRILEX 2 MG GUM BUC PRN (14:22)
[2023-02-18] MEDS ORDERED: MAG HYDROX/AL HYDROX/SIMETH 30 ML UNIT-DOSE CUP PO PRN (14:22)
[2023-02-18] MEDS ORDERED: guaiFENesin 600 MG TABLET.ER (FP) PO PRN (14:22)
[2023-02-18] MEDS ORDERED: BENZONATATE 200 MG CAPSULE PO PRN (14:22)
[2023-02-18] MEDS ORDERED: METHOCARBAMOL 500 MG TABLET PO PRN (14:22)
[2023-02-18] MEDS ORDERED: IBUPROFEN 600 MG TABLET (FP) PO PRN (14:22)
[2023-02-18] MEDS ORDERED: IBUPROFEN 400 MG TABLET (FP) PO PRN (14:22)
[2023-02-18] MEDS ORDERED: ALBUTEROL SO4 HFA INHALER IH PRN (14:27)
[2023-02-18] MEDS ORDERED: GABAPENTIN 100 MG CAPSULE ONE (14:50)
[2023-02-18] MEDS ORDERED: chlordiazePOXIDE HCL 25 MG CAPSULE PO ONE (15:00)
[2023-02-18] MEDS ORDERED: GABAPENTIN 400 MG CAPSULE PO ONE (15:30)
[2023-02-18] MEDS: chlordiazePOXIDE HCL 25 MG CAPSULE PO SCH ×2 (16:56→22:01)
[2023-02-18 17:47] LABS: HEMATOCRIT 39.3 % (35.4-49); HEMOGLOBIN 13.5 GM/dL (11.7-16.9); MCH 34.6 pg (25.7-33.7); MCHC 34.4 g/dl (32.0-35.9); MEAN CELL VOLUME 100.3 fl (80-96); MEAN PLT VOLUME 10.1 fl (7.5-11.1); PLATELET COUNT 155 10^3/uL (134-434); RBC 3.91 M/mm3 (4.00-5.60); RDW 15.3 % (11.9-15.9); WHITE BLOOD COUNT 2.6 K/mm3 (4.0-10.0)
[2023-02-18 17:59] LABS: ALBUMIN 3.6 g/dl (3.4-5.0); BLOOD UREA NITROGEN 7.5 mg/dL (7-18); CALCIUM 8.7 mg/dL (8.5-10.1)
[2023-02-18 18:01] LABS: BILIRUBIN,TOTAL 0.7 mg/dL (0.2-1)
[2023-02-18 18:02] LABS: CREATININE 0.8 mg/dL (0.55-1.3)
[2023-02-18 18:04] LABS: TOT PROT 7.4 g/dl (6.4-8.2)
[2023-02-18] MEDS ORDERED: MELATONIN 5 MG TABLETS PO SCH (22:00)
[2023-02-18] MEDS ORDERED: GABAPENTIN 300 MG CAPSULE PO SCH (22:00)
[2023-02-18] MEDS: GABAPENTIN 400 MG CAPSULE PO SCH (22:01)
[2023-02-18] MEDS: THIAMINE HCL 100 MG TABLET (FP) PO SCH (22:01)
[2023-02-19] MEDS: chlordiazePOXIDE HCL 25 MG CAPSULE PO SCH ×4 (05:37→22:33)
[2023-02-19] MEDS: GABAPENTIN 400 MG CAPSULE PO SCH ×3 (05:50→22:34)
[2023-02-19] MEDS: PRENATAL VITAMINS W/ FOLIC ACID TABLET (FP) PO SCH (10:09)
[2023-02-19] MEDS: SERTRALINE HCL 50 MG TABLET (FP) PO SCH (12:45)
[2023-02-19] MEDS ORDERED: QUEtiapine FUMARATE 100 MG TABLET (FP) PO SCH (22:00)
[2023-02-19] MEDS ORDERED: QUEtiapine FUMARATE 50 MG TABLET PO SCH (22:00)
[2023-02-19] MEDS: LACTULOSE 20 GM/30 ML UDC (FOR ORAL USE ONLY) PO SCH (22:33)
[2023-02-19] MEDS: THIAMINE HCL 100 MG TABLET (FP) PO SCH (22:34)
[2023-02-20] MEDS: GABAPENTIN 400 MG CAPSULE PO SCH ×2 (05:32→14:33)
[2023-02-20] MEDS: LACTULOSE 20 GM/30 ML UDC (FOR ORAL USE ONLY) PO SCH ×2 (05:32→14:33)
[2023-02-20] MEDS: chlordiazePOXIDE HCL 25 MG CAPSULE PO SCH ×2 (05:32→10:51)
[2023-02-20 07:10] VITALS: RESP 18
[2023-02-20] MEDS: SERTRALINE HCL 50 MG TABLET (FP) PO SCH (10:51)
[2023-02-20] MEDS: PRENATAL VITAMINS W/ FOLIC ACID TABLET (FP) PO SCH (10:51)
[2023-02-20 13:18] VITALS: BP 148/82; PULSE 108; TEMP 97.3
[2023-02-21] MEDS ORDERED: chlordiazePOXIDE HCL 10 MG CAPSULE PO PRN
[2023-02-21] MEDS ORDERED: chlordiazePOXIDE HCL 10 MG CAPSULE PO SCH (05:00)
[2023-02-22] MEDS ORDERED: chlordiazePOXIDE HCL 10 MG CAPSULE PO SCH (05:00)
[2023-02-23] MEDS ORDERED: chlordiazePOXIDE HCL 10 MG CAPSULE PO ONE (05:00)
== END 2023-02-20 17:11 | disposition left against medical advice (07) | DRG 770 ==
LOC: YASAS 12:22 → Y6N 15:58
PROVIDERS: ADMIT Allergy & Immunology; ATTEND Surgery
PROC: HZ2ZZZZ Detoxification Services for Substance Abuse Treatment (ICD-10-PCS; principal; 2023-02-18)
DX: F10.230 Alcohol dependence with withdrawal, uncomplicated (principal); F12.20 Cannabis dependence, uncomplicated; F17.210 Nicotine dependence, cigarettes, uncomplicated; F10.280 Alcohol dependence with alcohol-induced anxiety disorder; F10.282 Alcohol dependence with alcohol-induced sleep disorder; F25.0 Schizoaffective disorder, bipolar type; F32.9 Major depressive disorder, single episode, unspecified; J45.20 Mild intermittent asthma, uncomplicated; M54.50 Low back pain, unspecified; G89.29 Other chronic pain; Z86.19 Personal history of other infectious and parasitic diseases; Z99.89 Dependence on other enabling machines and devices; Z88.0 Allergy status to penicillin
CPT/HCPCS: 36415; 71046-TC-FY; 80053; 82140; 85027; 86593; 86780; C9803-CS; U0003; U0005

== ENCOUNTER 2024-02-09 16:07 | Inpatient (IN) | payer OTHER ==
[2024-02-09 18:01] VITALS: BMI 21.5
[2024-02-09] MEDS ORDERED: ALBUTEROL SO4 HFA INHALER IH PRN (20:23)
[2024-02-09] MEDS ORDERED: chlordiazePOXIDE HCL 25 MG CAPSULE ONE (21:18)
[2024-02-09] MEDS: chlordiazePOXIDE HCL 25 MG CAPSULE PO ONE (21:22)
[2024-02-09] MEDS: GABAPENTIN 400 MG CAPSULE PO SCH (21:52)
[2024-02-09] MEDS ORDERED: LOPERAMIDE HCL 2 MG CAPSULE PO PRN (22:00)
[2024-02-09] MEDS ORDERED: DICYCLOMINE HCL 10 MG CAPSULE PO PRN (22:00)
[2024-02-09] MEDS ORDERED: BISMUTH SUBSALICYLATE 524 MG/30 ML PO PRN (22:00)
[2024-02-09] MEDS ORDERED: P-EPHED 60MG/TRIPROLIDI 2.5MG TABLET PO PRN (22:00)
[2024-02-09] MEDS ORDERED: POLYETHYLENE GLYCOL (HEALTHYLAX) 3350 17 GM PACKET PO PRN (22:00)
[2024-02-09] MEDS ORDERED: BENZOCAINE/MENTHOL (CHLORASEPTIC ) LOZENGE MM PRN (22:00)
[2024-02-09] MEDS ORDERED: BENZONATATE 200 MG CAPSULE PO PRN (22:00)
[2024-02-09] MEDS ORDERED: MAGNESIUM HYDROX 2400MG/30ML ORAL SUSPENSION 30 ML CUP PO PRN (22:00)
[2024-02-09] MEDS ORDERED: MAG HYDROX/AL HYDROX/SIMETH 30 ML UNIT-DOSE CUP PO PRN (22:00)
[2024-02-09] MEDS ORDERED: IBUPROFEN 400 MG TABLET (FP) PO PRN (22:00)
[2024-02-09] MEDS ORDERED: hydrOXYzine PAMOATE 25 MG CAPSULE (FP) PO PRN (22:00)
[2024-02-09] MEDS ORDERED: ONDANSETRON *ODT* 4 MG TABLET SL PRN (22:00)
[2024-02-09] MEDS ORDERED: guaiFENesin 600 MG TABLET.ER (FP) PO PRN (22:00)
[2024-02-09] MEDS ORDERED: NICOTINE POLACRILEX 2 MG GUM BUC PRN (22:00)
[2024-02-09] MEDS: LIDOCAINE PATCH REMOVAL MC SCH (23:30)
[2024-02-09] MEDS: METHOCARBAMOL 500 MG TABLET PO PRN (23:30)
[2024-02-09] MEDS: MELATONIN 5 MG TABLETS PO SCH (23:30)
[2024-02-09] MEDS: THIAMINE HCL 100 MG TABLET (FP) PO SCH (23:31)
[2024-02-09] MEDS: chlordiazePOXIDE HCL 25 MG CAPSULE PO SCH (23:31)
[2024-02-10] MEDS: PRENATAL VITAMINS W/ FOLIC ACID TABLET (FP) PO SCH (10:12)
[2024-02-10] MEDS: LIDOCAINE 4% PATCH TP SCH (10:12)
[2024-02-10] MEDS: SERTRALINE HCL 50 MG TABLET (FP) PO SCH (10:13)
[2024-02-10 12:11] LABS: HEMATOCRIT 41.9 % (35.4-49); HEMOGLOBIN 13.7 GM/dL (11.7-16.9); MCH 32.5 pg (25.7-33.7); MCHC 32.6 g/dl (32.0-35.9); MEAN CELL VOLUME 99.8 fl (80-96); PLATELET COUNT 113 10^3/uL (134-434); RDW 12.9 % (11.9-15.9); WHITE BLOOD COUNT 3.2 K/mm3 (4.0-10.0)
[2024-02-10 12:16] LABS: POTASSIUM 3.8 mmol/L (3.5-5.1)
[2024-02-10 12:24] LABS: ALBUMIN 3.5 g/dl (3.4-5.0); BLOOD UREA NITROGEN 10.4 mg/dL (7-18); CALCIUM 8.8 mg/dL (8.5-10.1)
[2024-02-10 12:25] LABS: CREATININE 0.8 mg/dL (0.55-1.3)
[2024-02-10 12:27] LABS: BILIRUBIN,TOTAL 1.7 mg/dL (0.2-1); TOT PROT 6.6 g/dl (6.4-8.2)
[2024-02-10] MEDS: chlordiazePOXIDE HCL 25 MG CAPSULE PO PRN (13:45)
[2024-02-10] MEDS: QUEtiapine FUMARATE 100 MG TABLET (FP) PO SCH (22:14)
[2024-02-11] MEDS: chlordiazePOXIDE HCL 25 MG CAPSULE PO SCH (05:31)
[2024-02-11] MEDS: ACETAMINOPHEN 325 MG TABLET (FP) PO PRN (10:15)
[2024-02-11] MEDS: diazePAM 5 MG TABLET PO PRN (13:33)
[2024-02-11] MEDS: diazePAM 5 MG TABLET PO SCH (17:33)
[2024-02-11] MEDS: IBUPROFEN 600 MG TABLET (FP) PO PRN (17:35)
[2024-02-11] MEDS: ERYTHROMYCIN BASE 250 MG TAB PO SCH (22:17)
[2024-02-12] MEDS ORDERED: chlordiazePOXIDE HCL 10 MG CAPSULE PO PRN
[2024-02-12] MEDS ORDERED: chlordiazePOXIDE HCL 10 MG CAPSULE PO SCH (05:00)
[2024-02-12] MEDS: diazePAM 5 MG TABLET PO SCH (06:03)
[2024-02-13] MEDS ORDERED: chlordiazePOXIDE HCL 10 MG CAPSULE PO SCH (05:00)
[2024-02-13] MEDS: diazePAM 5 MG TABLET PO SCH (05:44)
[2024-02-13] MEDS: METHYL SALICYLATE/MENTHOL OINT 30 GM TUBE TP SCH (22:04)
[2024-02-14] MEDS ORDERED: chlordiazePOXIDE HCL 10 MG CAPSULE PO ONE (05:00)
[2024-02-14] MEDS: diazePAM 5 MG TABLET PO ONE (05:37)
[2024-02-14 05:44] VITALS: BP 105/70; PULSE 90; RESP 16; TEMP 97.6
== END 2024-02-14 09:01 | disposition home or self-care (01) | DRG 775 ==
LOC: YASAS 16:07 → Y3N 21:25
PROVIDERS: ADMIT Allergy & Immunology; ATTEND Surgery
PROC: HZ2ZZZZ Detoxification Services for Substance Abuse Treatment (ICD-10-PCS; principal; 2024-02-06)
DX: F10.230 Alcohol dependence with withdrawal, uncomplicated (principal); F17.210 Nicotine dependence, cigarettes, uncomplicated; F10.280 Alcohol dependence with alcohol-induced anxiety disorder; F10.282 Alcohol dependence with alcohol-induced sleep disorder; F10.24 Alcohol dependence with alcohol-induced mood disorder; F32.9 Major depressive disorder, single episode, unspecified; G47.00 Insomnia, unspecified; J45.909 Unspecified asthma, uncomplicated; M54.50 Low back pain, unspecified; G89.29 Other chronic pain; R76.8 Other specified abnormal immunological findings in serum; Z99.89 Dependence on other enabling machines and devices; Z86.19 Personal history of other infectious and parasitic diseases; Z88.0 Allergy status to penicillin
CPT/HCPCS: 36415; 71046-TC-FY; 80053; 80305; 85027; 86593; 86780; 93005; 93010

== ENCOUNTER 2024-03-17 14:05 | Inpatient (IN) | payer OTHER ==
[2024-03-17] MEDS ORDERED: METOPROLOL TARTRATE 25 MG TABLET (FP) PO ONE ×2 (18:16→19:45)
[2024-03-17] MEDS ORDERED: ALBUTEROL SO4 HFA INHALER IH PRN (18:16)
[2024-03-17] MEDS ORDERED: BISMUTH SUBSALICYLATE 524 MG/30 ML PO PRN (18:22)
[2024-03-17] MEDS ORDERED: guaiFENesin 600 MG TABLET.ER (FP) PO PRN (18:22)
[2024-03-17] MEDS ORDERED: POLYETHYLENE GLYCOL (HEALTHYLAX) 3350 17 GM PACKET PO PRN (18:22)
[2024-03-17] MEDS ORDERED: IBUPROFEN 600 MG TABLET (FP) PO PRN (18:22)
[2024-03-17] MEDS ORDERED: DICYCLOMINE HCL 10 MG CAPSULE PO PRN (18:22)
[2024-03-17] MEDS ORDERED: NICOTINE POLACRILEX 2 MG GUM BUC PRN (18:22)
[2024-03-17] MEDS ORDERED: MAG HYDROX/AL HYDROX/SIMETH 30 ML UNIT-DOSE CUP PO PRN (18:22)
[2024-03-17] MEDS ORDERED: BENZONATATE 200 MG CAPSULE PO PRN (18:22)
[2024-03-17] MEDS ORDERED: ONDANSETRON *ODT* 4 MG TABLET SL PRN (18:22)
[2024-03-17] MEDS ORDERED: LOPERAMIDE HCL 2 MG CAPSULE PO PRN (18:22)
[2024-03-17] MEDS ORDERED: BENZOCAINE/MENTHOL (CHLORASEPTIC ) LOZENGE MM PRN (18:22)
[2024-03-17] MEDS ORDERED: MAGNESIUM HYDROX 2400MG/30ML ORAL SUSPENSION 30 ML CUP PO PRN (18:22)
[2024-03-17] MEDS ORDERED: ACETAMINOPHEN 325 MG TABLET (FP) PO PRN (18:22)
[2024-03-17] MEDS: METOPROLOL TARTRATE 25 MG TABLET (FP) PO ONE (21:13)
[2024-03-17] MEDS: THIAMINE 100 MG TABLET PO SCH (21:14)
[2024-03-17] MEDS: MELATONIN 5 MG TABLETS PO SCH (21:14)
[2024-03-18] MEDS: IBUPROFEN 400 MG TABLET (FP) PO PRN (06:08)
[2024-03-18] MEDS: METHOCARBAMOL 500 MG TABLET PO PRN (06:08)
[2024-03-18] MEDS: hydrOXYzine PAMOATE 25 MG CAPSULE (FP) PO PRN (06:08)
[2024-03-18] MEDS: PRENATAL VITAMINS W/ FOLIC ACID TABLET (FP) PO SCH (09:59)
[2024-03-18] MEDS: SERTRALINE HCL 50 MG TABLET (FP) PO SCH (11:01)
[2024-03-18] MEDS: diazePAM 5 MG TABLET PO SCH (11:01)
[2024-03-18 12:37] LABS: HEMATOCRIT 45.2 % (35.4-49); HEMOGLOBIN 15.4 GM/dL (11.7-16.9); MCH 34.2 pg (25.7-33.7); MCHC 34.1 g/dl (32.0-35.9); MEAN CELL VOLUME 100.4 fl (80-96); MEAN PLT VOLUME 9.8 fl (7.5-11.1); PLATELET COUNT 156 10^3/uL (134-434); RDW 14.6 % (11.9-15.9); WHITE BLOOD COUNT 3.2 K/mm3 (4.0-10.0)
[2024-03-18 12:58] LABS: POTASSIUM 3.9 mmol/L (3.5-5.1)
[2024-03-18 13:04] LABS: ALBUMIN 4.1 g/dl (3.4-5.0); CALCIUM 9.4 mg/dL (8.5-10.1)
[2024-03-18 13:06] LABS: BLOOD UREA NITROGEN 8.5 mg/dL (7-18)
[2024-03-18 13:07] LABS: CREATININE 0.9 mg/dL (0.55-1.3)
[2024-03-18 13:09] LABS: BILIRUBIN,TOTAL 1.3 mg/dL (0.2-1); TOT PROT 7.8 g/dl (6.4-8.2)
[2024-03-18] MEDS: diazePAM 5 MG TABLET PO PRN (13:22)
[2024-03-18] MEDS: GABAPENTIN 100 MG CAPSULE PO SCH (13:22)
[2024-03-18] MEDS: QUEtiapine FUMARATE 100 MG TABLET (FP) PO SCH (22:32)
[2024-03-20] MEDS: diazePAM 5 MG TABLET PO SCH (06:15)
[2024-03-21] MEDS: diazePAM 5 MG TABLET PO SCH (05:45)
[2024-03-22] MEDS: diazePAM 5 MG TABLET PO ONE (05:45)
[2024-03-22 06:48] VITALS: BP 127/76; PULSE 63; RESP 18; TEMP 97.7
== END 2024-03-22 09:26 | disposition home or self-care (01) | DRG 775 ==
LOC: YASAS 14:05 → Y3N 18:48
PROVIDERS: ADMIT Allergy & Immunology; ATTEND Surgery
PROC: HZ2ZZZZ Detoxification Services for Substance Abuse Treatment (ICD-10-PCS; principal; 2024-03-17)
DX: F10.230 Alcohol dependence with withdrawal, uncomplicated (principal); F12.20 Cannabis dependence, uncomplicated; F17.210 Nicotine dependence, cigarettes, uncomplicated; F10.282 Alcohol dependence with alcohol-induced sleep disorder; F10.280 Alcohol dependence with alcohol-induced anxiety disorder; F10.24 Alcohol dependence with alcohol-induced mood disorder; F32.9 Major depressive disorder, single episode, unspecified; G47.00 Insomnia, unspecified; J45.20 Mild intermittent asthma, uncomplicated; M54.50 Low back pain, unspecified; G89.29 Other chronic pain; R76.8 Other specified abnormal immunological findings in serum; Z86.19 Personal history of other infectious and parasitic diseases; Z88.0 Allergy status to penicillin
CPT/HCPCS: 36415; 80053; 80305; 85027; 86593; 86780

== ENCOUNTER 2024-11-01 15:39 | Inpatient (IN) | payer OTHER ==
[2024-11-01 16:58] VITALS: BMI 21.7
[2024-11-01] MEDS ORDERED: ALBUTEROL SO4 HFA INHALER IH PRN (17:07)
[2024-11-01] MEDS ORDERED: NICOTINE POLACRILEX 2 MG LOZENGE BC PRN (17:09)
[2024-11-01] MEDS ORDERED: guaiFENesin 600 MG TABLET.ER (FP) PO PRN (17:09)
[2024-11-01] MEDS ORDERED: BENZOCAINE/MENTHOL (CHLORASEPTIC ) LOZENGE MM PRN (17:09)
[2024-11-01] MEDS ORDERED: IBUPROFEN 400 MG TABLET (FP) PO PRN (17:09)
[2024-11-01] MEDS ORDERED: MAG HYDROX/AL HYDROX/SIMETH 30 ML UNIT-DOSE CUP PO PRN (17:09)
[2024-11-01] MEDS ORDERED: NALOXONE (NARCAN) HCL 4 MG/0.1 ML SPRAY NS PRN (17:09)
[2024-11-01] MEDS ORDERED: MAGNESIUM HYDROX 2400MG/30ML ORAL SUSPENSION 30 ML CUP PO PRN (17:09)
[2024-11-01] MEDS ORDERED: IBUPROFEN 600 MG TABLET (FP) PO PRN (17:09)
[2024-11-01] MEDS ORDERED: BENZONATATE 200 MG CAPSULE PO PRN (17:09)
[2024-11-01] MEDS ORDERED: ONDANSETRON *ODT* 4 MG TABLET SL PRN (17:09)
[2024-11-01] MEDS ORDERED: NICOTINE POLACRILEX 2 MG GUM BUC PRN (17:09)
[2024-11-01] MEDS ORDERED: DICYCLOMINE HCL 10 MG CAPSULE PO PRN (17:09)
[2024-11-01] MEDS ORDERED: BISMUTH SUBSALICYLATE 524 MG/30 ML PO PRN (17:09)
[2024-11-01] MEDS ORDERED: LOPERAMIDE HCL 2 MG CAPSULE PO PRN (17:09)
[2024-11-01] MEDS ORDERED: METHOCARBAMOL 500 MG TABLET PO PRN (17:09)
[2024-11-01] MEDS ORDERED: POLYETHYLENE GLYCOL (HEALTHYLAX) 3350 17 GM PACKET PO PRN (17:09)
[2024-11-01] MEDS: chlordiazePOXIDE HCL 25 MG CAPSULE PO SCH (17:58)
[2024-11-01] MEDS: MELATONIN 5 MG TABLETS PO SCH (22:19)
[2024-11-01] MEDS: THIAMINE 100 MG TABLET PO SCH (22:19)
[2024-11-02] MEDS: PRENATAL VITAMINS W/ FOLIC ACID TABLET (FP) PO SCH (10:22)
[2024-11-02 11:10] LABS: HEMATOCRIT 39.1 % (35.4-49); HEMOGLOBIN 12.8 GM/dL (11.7-16.9); MCH 33.8 pg (25.7-33.7); MCHC 32.8 g/dl (32.0-35.9); MEAN CELL VOLUME 102.9 fl (80-96); MEAN PLT VOLUME 9.8 fl (7.5-11.1); PLATELET COUNT 88 10^3/uL (134-434); RBC 3.79 M/mm3 (4.00-5.60); RDW 14.4 % (11.9-15.9); WHITE BLOOD COUNT 2.6 K/mm3 (4.0-10.0)
[2024-11-02 11:15] LABS: CHLORIDE 101 mmol/L (98-107); POTASSIUM 3.9 mmol/L (3.5-5.1); SODIUM 138 mmol/L (136-145)
[2024-11-02 11:31] LABS: ALBUMIN 3.4 g/dl (3.4-5.0); ANION GAP 7 mmol/L (4-13); CO2 30 mmol/L (21-32); GLUCOSE,RANDOM 113 mg/dL (74-106)
[2024-11-02 11:34] LABS: CREATININE 0.9 mg/dL (0.55-1.3); SGOT/AST 80 U/L (15-37); SGPT/ALT 38 U/L (13-61)
[2024-11-02 11:36] LABS: BILIRUBIN,TOTAL 1.7 mg/dL (0.2-1); TOT PROT 6.5 g/dl (6.4-8.2)
[2024-11-02 11:37] LABS: ALK PHOS 41 U/L (45-117)
[2024-11-02] MEDS: chlordiazePOXIDE HCL 25 MG CAPSULE PO PRN (12:38)
[2024-11-02] MEDS: GABAPENTIN 400 MG CAPSULE PO SCH (13:41)
[2024-11-02] MEDS: levETIRAcetam 250 MG TABLET PO ONE (14:45)
[2024-11-02] MEDS: levETIRAcetam 250 MG TABLET PO SCH (22:01)
[2024-11-03] MEDS: chlordiazePOXIDE HCL 25 MG CAPSULE PO SCH (05:45)
[2024-11-03] MEDS ORDERED: SERTRALINE HCL 50 MG TABLET (FP) PO SCH (10:00)
[2024-11-03] MEDS: ACETAMINOPHEN 325 MG TABLET (FP) PO PRN (10:08)
[2024-11-03] MEDS: SERTRALINE HCL 50 MG TABLET (FP) PO SCH (10:08)
[2024-11-03] MEDS: QUEtiapine FUMARATE 200 MG TABLET PO ONE (22:46)
[2024-11-04] MEDS ORDERED: chlordiazePOXIDE HCL 10 MG CAPSULE PO PRN
[2024-11-04] MEDS: chlordiazePOXIDE HCL 10 MG CAPSULE PO SCH (05:27)
[2024-11-04] MEDS: QUEtiapine FUMARATE 200 MG TABLET PO SCH (22:17)
[2024-11-05] MEDS: chlordiazePOXIDE HCL 10 MG CAPSULE PO SCH (05:35)
[2024-11-05] MEDS: NALOXONE (NYS OPIOID OVERDOSE PROGRAM) 4 MG/0.1 ML SPRAY NS SCH (10:29)
[2024-11-05 18:44] VITALS: TEMP 97.8
[2024-11-06] MEDS: chlordiazePOXIDE HCL 10 MG CAPSULE PO ONE (05:26)
[2024-11-06 06:15] VITALS: BP 111/74; PULSE 90; RESP 17
== END 2024-11-06 09:02 | disposition home or self-care (01) | DRG 773 ==
LOC: YASAS 15:39 → Y6N 19:11
PROVIDERS: ADMIT Allergy & Immunology; ATTEND Surgery
PROC: HZ2ZZZZ Detoxification Services for Substance Abuse Treatment (ICD-10-PCS; principal; 2024-11-01)
DX: F11.20 Opioid dependence, uncomplicated (principal); F12.20 Cannabis dependence, uncomplicated; F17.210 Nicotine dependence, cigarettes, uncomplicated; F10.282 Alcohol dependence with alcohol-induced sleep disorder; F10.280 Alcohol dependence with alcohol-induced anxiety disorder; F25.1 Schizoaffective disorder, depressive type; F10.24 Alcohol dependence with alcohol-induced mood disorder; D70.9 Neutropenia, unspecified; D69.6 Thrombocytopenia, unspecified; M54.50 Low back pain, unspecified; G89.29 Other chronic pain; Z20.2 Contact with and (suspected) exposure to infections with a predominantly sexual mode of transmission; Z99.89 Dependence on other enabling machines and devices; Z88.0 Allergy status to penicillin
CPT/HCPCS: 36415; 80053; 80307; 85027; 86593; 86780